=== PATIENT | female | born 1965 | race African-American/Black ===

== ENCOUNTER 2022-02-14 16:51 | Emergency (ER) | payer OTHER ==
[2022-02-14 17:11] VITALS: BP 128/79; PULSE 73; RESP 18; TEMP 97.9; BMI 27.8
== END 2022-02-14 18:07 | disposition home or self-care (01) ==
LOC: JERFT 16:51
DX: S09.90XA Unspecified injury of head, initial encounter (principal); W10.8XXA Fall (on) (from) other stairs and steps, initial encounter
CPT/HCPCS: 99283-25